=== PATIENT | male | born 1990 | race African-American/Black ===

== ENCOUNTER 2017-06-12 09:59 | Emergency (ER) | payer OTHER ==
[2017-06-12] MEDS ORDERED: IBUPROFEN 800 MG TAB PO STA (11:02)
[2017-06-12] MEDS ORDERED: CYCLOBENZAPRINE 10 MG TAB PO STA (11:02)
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
[2017-06-12 12:20] VITALS: BP 138/81; PULSE 64; RESP 17; TEMP 97.4
== END 2017-06-12 12:21 | disposition home or self-care (01) ==
LOC: EC 09:59
DX: S29.012A Strain of muscle and tendon of back wall of thorax, initial encounter (principal); S39.012A Strain of muscle, fascia and tendon of lower back, initial encounter; S16.1XXA Strain of muscle, fascia and tendon at neck level, initial encounter; R40.2412 Glasgow coma scale score 13-15, at arrival to emergency department; F17.200 Nicotine dependence, unspecified, uncomplicated; V53.5XXA Driver of pick-up truck or van injured in collision with car, pick-up truck or van in traffic accident, initial encounter; Y92.410 Unspecified street and highway as the place of occurrence of the external cause
CPT/HCPCS: 71046; 72072; 72110; 99284

== ENCOUNTER 2020-08-12 20:57 | Emergency (ER) | payer OTHER ==
[2020-08-12 21:22] VITALS: BP 170/87; PULSE 74; RESP 18; TEMP 98.8
[2020-08-12] MEDS ORDERED: predniSONE 20 MG TAB PO STA (21:27)
[2020-08-12] MEDS ORDERED: AMOXICILLIN 875 MG TAB PO STA (21:28)
--- NOTE | 2020-08-12 21:30 | ED ---
ENT HPI - General Chief complaint: ENT Stated complaint: Sore Thorat Time Seen by Provider: 08/12/20 21:17 Source: patient Mode of arrival: ambulatory Limitations: no limitations - History of Present Illness MD complaint: sore throat Onset/Timin -: days(s) Location: throat Severity: moderate Quality: burning Consistency: constant Improves with: none Worsens with: swallowing, eating Associated Symptoms: pain with swallowing, sore throat - Related Data Previous Rx's Medication Instructions Recorded Cyclobenzaprine [Flexeril] 10 mg PO TID #14 tab 06/12/17 Ibuprofen 800 mg PO Q6HR PRN #20 tablet 06/12/17 Amoxicillin 875 mg PO Q12HR #14 tablet 08/12/20 Allergies Allergy/AdvReac Type Severity Reaction Status Date / Time No Known Allergies Allergy Verified 06/12/17 10:56 Review of Systems ROS Statement: Those systems with pertinent positive or pertinent negative responses have been documented in the HPI. ROS Other: All systems not noted in ROS Statement are negative. Constitutional: Denies: fever, chills ENT: Reports: throat pain. Denies: ear pain, hearing loss, congestion Respiratory: Denies: cough, dyspnea, wheezes Cardiovascular: Denies: chest pain, palpitations Gastrointestinal: Denies: abdominal pain, nausea, vomiting Genitourinary: Denies: dysuria Skin: Denies: rash Neurological: Denies: headache Past Medical History Past Medical History: No Reported History History of Any Multi-Drug Resistant Organisms: None Reported Past Surgical History: No Surgical Hx Reported Past Psychological History: No Psychological Hx Reported Smoking Status: Current every day smoker Past Alcohol Use History: None Reported Past Drug Use History: None Reported General Exam Limitations: no limitations General appearance: alert, in no apparent distress Head exam: Present: atraumatic, normocephalic Eye exam: Present: normal appearance. Absent: scleral icterus, conjunctival injection ENT exam: Present: mucous membranes moist, other (Erythema of the posterior pharynx with some mild exudate. The uvula is midline. No evidence of priscila tonsillar abscess) Neck exam: Present: normal inspection, tenderness, full ROM, lymphadenopathy. Absent: meningismus, thyromegaly Respiratory exam: Present: normal lung sounds bilaterally. Absent: respiratory distress, wheezes, rales, rhonchi, stridor Cardiovascular Exam: Present: regular rate, normal rhythm, normal heart sounds. Absent: systolic murmur, diastolic murmur, rubs, gallop Neurological exam: Present: alert Skin exam: Present: warm, dry, intact, normal color. Absent: rash Course Vital Signs 08/12/20 21:20 Temperature 98.8 F Pulse Rate 74 Respiratory 18 Rate Blood Pressure 170/87 O2 Sat by Pulse 98 Oximetry Disposition Clinical Impression: Pharyngitis Disposition: HOME SELF-CARE Condition: Good Instructions (If sedation given, give patient instructions): Pharyngitis (ED) Prescriptions: Amoxicillin 875 mg PO Q12HR #14 tablet Is patient prescribed a controlled substance at d/c from ED?: No Referrals: Fermín Carrera MD [Primary Care Provider] - 1-2 days
[2020-08-12] MEDS ORDERED: LIDOCAINE VISCOUS 2% 15 ML CUP MUCOUS MEM STA (21:45)
== END 2020-08-12 21:56 | disposition home or self-care (01) ==
LOC: EC 20:57
DX: J02.9 Acute pharyngitis, unspecified (principal); F17.200 Nicotine dependence, unspecified, uncomplicated
CPT/HCPCS: 99282; J7512

== ENCOUNTER 2020-09-12 09:30 | Emergency (ER) | payer OTHER ==
[2020-09-12 09:35] VITALS: BP 124/68; PULSE 85; RESP 18; TEMP 97.5
[2020-09-12] MEDS ORDERED: KETOROLAC 15 MG/ML 1 ML VIAL IVP STA (10:00)
[2020-09-12 10:23] LABS: Basophils % (A) 1 %; Eosinophils # (A) 0.2 k/uL (0-0.7); Eosinophils % (A) 5 %; HCT 44.5 % (39.0-53.0); Lymphocytes # (A) 1.7 k/uL (1.0-4.8); Lymphocytes % (A) 33 %; MCHC 33.6 g/dL (31.0-37.0); MCV 89.1 fL (80.0-100.0); Mean Platelet Volume 8.9; Monocytes # (A) 0.3 k/uL (0-1.0); Monocytes % (A) 7 %; Neutrophils # (A) 2.8 k/uL (1.3-7.7); Neutrophils % (A) 54 %; Platelet Count 159 k/uL (150-450); RBC 4.99 m/uL (4.30-5.90); RDW 12.7 % (11.5-15.5); WBC 5.2 k/uL (3.8-10.6)
[2020-09-12 10:32] LABS: Albumin 3.9 g/dL (3.5-5.0); Calcium 9.1 mg/dL (8.4-10.2); Potassium 3.5 mmol/L (3.5-5.1); Total Bilirubin 0.5 mg/dL (0.2-1.3); Total Protein 6.6 g/dL (6.3-8.2)
--- NOTE | 2020-09-12 10:42 | ED ---
General Adult HPI - General Chief complaint: Abdominal Pain Stated complaint: ABD PAIN Time Seen by Provider: 09/12/20 09:35 Source: patient, RN notes reviewed Mode of arrival: ambulatory Limitations: no limitations - History of Present Illness Initial comments: 29-year-old male presents to the emergency room for a chief complaint of abdominal and testicular pain. Patient states this started yesterday. States both his testicles and his lower abdomen hurts. He is unsure which hurts more where radiates. He states that walking around worsens the pain. He denies any dysuria. Denies any new sexual partners. Denies any purulent discharge from the penis. Patient denies any nausea vomiting diarrhea or fevers.Patient has no other complaints at this time including shortness of breath, chest pain, nausea or vomiting, headache, or visual changes. - Related Data Home Medications Medication Instructions Recorded Confirmed No Known Home Medications 09/12/20 09/12/20 Allergies Allergy/AdvReac Type Severity Reaction Status Date / Time No Known Allergies Allergy Verified 09/12/20 10:27 Review of Systems ROS Statement: Those systems with pertinent positive or pertinent negative responses have been documented in the HPI. ROS Other: All systems not noted in ROS Statement are negative. Past Medical History Past Medical History: No Reported History History of Any Multi-Drug Resistant Organisms: None Reported Past Surgical History: No Surgical Hx Reported Past Psychological History: No Psychological Hx Reported Smoking Status: Current every day smoker Past Alcohol Use History: None Reported Past Drug Use History: None Reported General Exam Limitations: no limitations General appearance: alert, in no apparent distress Head exam: Present: atraumatic, normocephalic, normal inspection Eye exam: Present: normal appearance, PERRL, EOMI. Absent: scleral icterus, conjunctival injection, periorbital swelling ENT exam: Present: normal exam, mucous membranes moist Neck exam: Present: normal inspection, full ROM. Absent: tenderness, meningismus, lymphadenopathy Respiratory exam: Present: normal lung sounds bilaterally. Absent: respiratory distress, wheezes, rales, rhonchi, stridor Cardiovascular Exam: Present: regular rate, normal rhythm, normal heart sounds. Absent: systolic murmur, diastolic murmur, rubs, gallop, clicks GI/Abdominal exam: Present: soft, tenderness (minimal generalized tenderness), normal bowel sounds. 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 Absent: urethral discharge, scrotal swelling, vertical testicular lie, circumcision Course Vital Signs 09/12/20 09:32 Temperature 97.5 F L Pulse Rate 85 Respiratory 18 Rate Blood Pressure 124/68 O2 Sat by Pulse 98 Oximetry Medical Decision Making - Medical Decision Making Vitals stable. CBC CMP unremarkable. Urinalysis unremarkable. STD testing pending however patient does not have concern for STD. Ultrasound was initially obtained which did reveal minimal right-sided posterior tenderness. However urinalysis is unremarkable, no evidence of significant infection. Ultrasound showed varicoceles noted bilaterally. CT was obtained as patient had lower abdominal pain that was persistent. No acute process aside from enteritis which is not clinically fit his picture. Patient was given Toradol and did have signi ficant permanent pain. At this time patient will follow up with with urology. - Lab Data Result diagrams: 09/12/20 10:06 09/12/20 10:06 Lab Results 09/12/20 09/12/20 09/12/20 Range/Units 10:06 10:06 10:06 WBC 5.2 (3.8-10.6) k/uL RBC 4.99 (4.30-5.90) m/uL Hgb 15.0 (13.0-17.5) gm/dL Hct 44.5 (39.0-53.0) % MCV 89.1 (80.0-100.0) fL MCH 30.0 (25.0-35.0) pg MCHC 33.6 (31.0-37.0) g/dL RDW 12.7 (11.5-15.5) % Plt Count 159 (150-450) k/uL MPV 8.9 Neutrophils % 54 % Lymphocytes % 33 % Monocytes % 7 % Eosinophils % 5 % Basophils % 1 % Neutrophils # 2.8 (1.3-7.7) k/uL Lymphocytes # 1.7 (1.0-4.8) k/uL Monocytes # 0.3 (0-1.0) k/uL Eosinophils # 0.2 (0-0.7) k/uL Basophils # 0.0 (0-0.2) k/uL Sodium 140 (137-145) mmol/L Potassium 3.5 (3.5-5.1) mmol/L Chloride 105 (98-107) mmol/L Carbon Dioxide 28 (22-30) mmol/L Anion Gap 7 mmol/L BUN 13 (9-20) mg/dL Creatinine 1.29 H (0.66-1.25) mg/dL Est GFR (CKD-EPI)AfAm 87 (>60 ml/min/1.73 sqM) Est GFR (CKD-EPI)NonAf 75 (>60 ml/min/1.73 sqM) Glucose 82 (74-99) mg/dL Calcium 9.1 (8.4-10.2) mg/dL Total Bilirubin 0.5 (0.2-1.3) mg/dL AST 29 (17-59) U/L ALT 24 (4-49) U/L Alkaline Phosphatase 75 (38-126) U/L Total Protein 6.6 (6.3-8.2) g/dL Albumin 3.9 (3.5-5.0) g/dL Amylase 51 (30-110) U/L Lipase 91 (23-300) U/L Urine Color Yellow Urine Appearance Clear (Clear) Urine pH 6.0 (5.0-8.0) Ur Specific Collins 1.041 H (1.001-1.035) Urine Protein 1+ H (Negative) Urine Glucose (UA) Negative (Negative) Urine Ketones Trace H (Negative) Urine Blood Negative (Negative) Urine Nitrite Negative (Negative) Urine Bilirubin Negative (Negative) Urine Urobilinogen 3.0 (<2.0) mg/dL Ur Leukocyte Esterase Negative (Negative) Urine RBC <1 (0-5) /hpf Urine WBC 2 (0-5) /hpf Ur Squamous Epith Cells <1 (0-4) /hpf Urine Mucus Many H (None) /hpf Disposition Clinical Impression: Varicocele, Abdominal pain, Testicular pain Disposition: HOME SELF-CARE Condition: Good Instructions (If sedation given, give patient instructions): Varicocele (ED) Additional Instructions: Please take Motrin for pain. Please follow-up with primary care and urology in 1-2 days. Return to the emergency room for any worsening symptoms. Is patient prescribed a controlled substance at d/c from ED?: No Referrals: Fermín Carrera MD [Primary Care Provider] - 1-2 days Gregorio Farmer MD [STAFF PHYSICIAN] - 1-2 days Time of Disposition: 12:49
[2020-09-12 10:43] LABS: Appearance,Urine Clear (Clear); Bilirubin,Urine Negative (Negative); Blood,Urine Negative (Negative); Color,Urine Yellow; Glucose,Urine (UA) Negative (Negative); Ketones,Urine Trace (Negative); Leukocyte Esterase,Urine Negative (Negative); Mucus,Urine Many /hpf; Nitrite,Urine Negative (Negative); Protein,Urine 1+ (Negative); RBC,Urine <1 /hpf (0-5); Specific Gravity,Urine 1.041 (1.001-1.035); Squamous Epithelial Cell,Urine <1 /hpf (0-4); WBC,Urine 2 /hpf (0-5)
--- NOTE | 2020-09-12 10:56 | US ---
EXAMINATION TYPE: US scrotum with doppler. Grayscale and color Doppler Duplex imaging performed of toñito berger scrotum. DATE OF EXAM: 09/12/2020 COMPARISON: NONE CLINICAL HISTORY: pain. bilateral testicle pain EXAM MEASUREMENTS: TESTICLES: Right Testicle: 4.3 x 2.8 x 4.1 cm Left Testicle: 4.6 x 2.7 x 4.0 cm EPIDIDYMIS HEAD: Right Epididymis: 1.0 cm Left Epididymis: 0.8 cm Doppler performed to assess for testicular vascularity; bilateral color flow and waveforms are seen. Some increased conspicuity of vascularity is noted within the scrotum on Valsalva. Presence of hydroceles: no Presence of varicoceles: yes, bilaterally Testicular echotexture is homogenous and symmetric IMPRESSION: There are bilateral varicoceles suspected, no evident intratesticular mass.
[2020-09-12] MEDS ORDERED: SODIUM CHLORIDE 0.9% 1,000 ML IV STA (11:07)
--- NOTE | 2020-09-12 12:22 | CT ---
EXAMINATION TYPE: CT abdomen pelvis w con DATE OF EXAM: 09/12/2020 COMPARISON: None HISTORY: Abdomen pain CT DLP: 1316.8 mGycm Automated exposure control for dose reduction was used. TECHNIQUE: Helical acquisition of images from the lung bases through the pelvis have been completed. CONTRAST: Performed without Oral Contrast and with IV Contrast, patient injected with 100 mL of Isovue 300. FINDINGS: There is an umbilical hernia containing fat. LUNG BASES: No significant abnormality is appreciated. AORTA: No significant abnormality is appreciated. LIVER/GB: No significant abnormality is appreciated. PANCREAS: No significant abnormality is seen. SPLEEN: No significant abnormality is seen. ADRENALS: No significant abnormality is seen. KIDNEYS: No significant abnormality is seen. REPRODUCTIVE ORGANS: No significant abnormality is seen BOWEL: Multiple small bowel loops show thickened wall. There are some fluid-filled loops of bowel th roughout the abdomen. No evident appendicitis FREE AIR: No Free Air visible. ASCITES: None visible. PELVIC ADENOPATHY: None visualized. RETROPERITONEAL ADENOPATHY: No Retroperitoneal Adenopathy visible. URINARY BLADDER: No significant abnormality is seen. OSSEOUS STRUCTURES: No significant abnormality is seen. IMPRESSION: CORRELATE FOR ENTERITIS.
== END 2020-09-12 13:01 | disposition home or self-care (01) ==
LOC: EC 09:30
DX: I86.1 Scrotal varices (principal); R10.30 Lower abdominal pain, unspecified; F17.200 Nicotine dependence, unspecified, uncomplicated
CPT/HCPCS: 36415; 80053; 82150; 83690; 85025; 81001; 87491; 87591; 93975; 76870; 74177; 99284; 96374; 96361; J1885; Q9967